=== PATIENT | female | born 1960 | race Caucasian/White ===

== ENCOUNTER → 2019-06-24 | Day surgery (SDC) | payer OTHER ==
--- NOTE | 2019-06-23 10:54 | Pre Op History & Physical ---
ANTICIPATED DATE OF SURGERY: June 24, 2019 CHIEF COMPLAINT: Chronic sinusitis, nasal obstruction. HISTORY OF PRESENT ILLNESS: This 59-year-old female has history of headaches with no nasal obstruction. The patient has normal sense of smell. The patient denies any epistaxis or fracture or injury to the nose. She does have postnasal drip. The patient was seen in the ER in [facility] for headaches. An MRI of the brain showed chronic sinusitis. The patient's condition has been treated by myself with multiple antibiotics including Augmentin and Medrol Dosepak with no improvement of the condition. A CT scan of paranasal sinuses done recently showed the patient has chronic sinusitis with ethmoid sinus involvement, maxillary sinus involvement, sphenoid sinus involvement, and deviated nasal septum to the right side. REVIEW OF SYSTEMS: System review showed no recent cardiovascular, respiratory, or GI problem. PAST MEDICAL HISTORY: The patient has history of mitral valve prolapse. PAST SURGICAL HISTORY: The patient has previous rotator cuff surgery on both sides and appendectomy. ALLERGIES: SHE IS ALLERGIC TO SULFA. MEDICATIONS: She is on Prempro. SOCIAL HISTORY: She is a nonsmoker and social drinker. FAMILY HISTORY: Noncontributory. PHYSICAL EXAMINATION: VITAL SIGNS: On examination, the patient's vital signs were within normal limits. HEENT: Ear exam show normal tympanic membrane bilaterally. Nasal exam show subluxation of the septum to the left side with the nasal septum on the right about 30%. Oropharynx and oral cavity show 1+ tonsils bilaterally with Mallampati level II. NECK: Showed no lymph node or thyroid palpable. CHEST: Showed good air entry bilaterally. CARDIOVASCULAR: Showed S1, S2. No murmur noted. ASSESSMENT AND PLAN: Ms. Candelario has chronic sinusitis and nasal obstruction, which has been resistant to conservative therapy. The suggested treatment is endoscopic sinus surgery, septoplasty, resection of inferior turbinate, and other necessary procedure. The complication of procedure includes, but not limited to bleeding, infection, CSF leak, blindness, double vision, dry eyes, septal perforation, septal hematoma, persistent nasal obstruction, persistent nasal crusting, nasal deformity, recurrence of sinus problem and persistence of headaches. Alternatives will be continued observation, continuing antibiotic therapy, topical nasal steroid therapy, systemic steroid therapy, and decongestant. The patient has elected to undergo surgical procedure. MD ALEXANDRA Medina/MAGGIE /[id number] cc: Abdelrahman Setward MD
[~2019-06-24] MED LIST: DEXAMETHASONE SOD PHOS 10 MG/1 ML VIAL ONE; DEXAMETHASONE SOD PHOS INJ 4 MG/ML VIAL ONE; EPINEPHRINE HCL 1:1000 1ML 1 MG/ML AMP ONE; FENTANYL CITRATE/PF 100MCG/2 ML INJ ONE; GLYCOPYRROLATE INJ 1MG/ 5 ML SYR ONE; KETOROLAC TROMETHAMINE 30 MG/ML VIAL ONE; LIDOCAINE 1% W/EPINEPHRINE 20 ML VIAL INJ ONE; LIDOCAINE 2%/ EPINEPHRINE 20ML MDV ONE; LIDOCAINE HCL 2% LOCAL INJ 5 ML SDV VIAL INJ ONE; MEPERIDINE HCL INJ 25 MG/ML VIAL ONE; MIDAZOLAM HCL 2 MG/2 ML VIAL ONE; NEOSTIGMINE 5 MG/5ML SYR ONE; ONDANSETRON HCL INJ 2MG/ML 2ML 2 MG/ML VIAL ONE; PREMPRO 0.3 MG1 EACH PO; PROMETHAZINE HCL (IM) 25 MG/ML VIAL ONE; PROPOFOL IV EMULSION 10 MG/ML 20 ML VIAL ONE; ROCURONIUM BROMIDE 10 MG/ML 5ML VIAL ONE; SCOPOLAMINE 1.5 MG PATCH ONE; SEVOFLURANE INHAL SOLN 250 ML PEN BTL ONE
--- OUTSIDE RECORDS SUMMARY | 2019-06-24 06:49 | XMS REPORT | Clinical Summary ---
Author Author [facility] Organization [facility] Address Unknown Phone Unavailable Care Team Providers Care Command And Control Specialist Name Role Phone Abdelrahman Steward MD PCP Allergies Comments Active Allergy Reactions Severity Noted Date Becomes very agitated Diphenhydramine Low 06/01/2019 Sulfa (Sulfonamide 11/08/2017 Antibiotics) Medications End Date Status Medication Sig Dispensed Refills Start Date Active PREMPRO 0.3-1.5 mg per 0 tablet 7 10/21/2018 Discontinued aspirin (ECOTRIN) 81 MG Take 81 mg by 0 enteric coated tablet mouth daily. 12/02/2018 Discontinued naproxen (NAPROSYN) 375 TAKE ONE 20 tablet 0 MG tablet TABLET BY 8 MOUTH TWO TIMES A DAY 12/02/2018 Discontinued gabapentin (NEURONTIN) TAKE ONE 30 capsule 0 300 mg capsule CAPSULE BY 8 MOUTH THREE TIMES A DAY Active Problems Problem Noted Date S/P right rotator cuff repair 11/05/2018 Follow-up examination after orthopedic surgery 11/05/2018 Chronic right shoulder pain 10/03/2018 Complete tear of right rotator cuff 11/08/2017 Encounters Care Team Description Date Type Specialty Saulo Tiwari MD Other migraine with status migrainosus, not intractable (Primary Dx) 06/01/2019 Emergency Emergency Medicine Endy Smith MD Complete tear of right rotator cuff (Primary Dx); S/P right rotator cuff repair 01/02/2019 Office Visit Orthopedic Surgery Endy Smith MD S/P right rotator cuff repair (Primary Dx) 12/02/2018 Office Visit Orthopedic Surgery Endy Smith MD Complete tear of right rotator cuff (Primary Dx); S/P right rotator cuff repair; Follow-up examination after orthopedic surgery 11/05/2018 Office Visit Orthopedic Surgery Endy Smith MD 11/04/2018 Refill Orthopedic Surgery Juanis Olivas MD 10/23/2018 Anesthesia General Surgery Event Endy Smith MD REPAIR, ROTATOR CUFF, ARTHROSCOPIC, BICEPS TENOTOMY AND TENODESIS, UPPER SUBSCAPULAR REPAIR, ACROMIOPLASTY AND BONE MARROW ASPIRATION AND INFUSION-RIGHT 10/23/2018 Surgery General Surgery Endy Smith MD 10/23/2018 Hospital General Surgery Encounter Endy Smith MD Preop testing 10/21/2018 Hospital Radiology Encounter Endy Smith MD Preop testing (Primary Dx) 10/21/2018 Pre-Admit Pre-Admission Testing Testing Appointment Endy Smith MD Complete tear of right rotator cuff (Primary Dx) 10/14/2018 Prep for Orthopedic Surgery Surgery Abdelrahman Steward MD Abnormal mammogram 10/09/2018 Hospital Radiology Encounter Abdelrahman Steward MD Abnormal mammogram 10/09/2018 Hospital Radiology Encounter Abdelrahman Steward MD Abnormal mammogram (Primary Dx) 10/08/2018 Transcribe Access Orders Abdelrahman Steward MD Screening breast examination 10/04/2018 Hospital Radiology Encounter Endy Smith MD Chronic right shoulder pain (Primary Dx); Complete tear of right rotator cuff 10/03/2018 Office Visit Orthopedic Surgery Abdelrahman Steward MD Screening breast examination (Primary Dx) 10/03/2018 Transcribe Access Orders after 06/23/2018 Family History Medical History Relation Name Comments Diabetes Maternal Grandmother Heart attack Maternal Grandmother COPD Mother Heart disease Mother Hyperlipidemia Mother Relation Name Status Comments Maternal Grandmother Mother Social History Date Tobacco Use Types Packs/Day Years Used Never Smoker Smokeless Tobacco: Never Used Alcohol Use Drinks/Week oz/Week Comments Yes 2-6 Glasses 1.2 - 3.6 of wine Sex Assigned at Date Recorded Not on file Industry Job Start Date Occupation Not on file Not on file Not on file Travel End Travel History Travel Start No recent travel history available. Last Filed Vital Signs Time Taken Vital Sign Reading 06/01/2019 1:07 AM CDT Blood Pressure 138/72 06/01/2019 1:07 AM CDT Pulse 87 05/31/2019 10:54 PM CDT Temperature 36.9 C (98.4 F) 06/01/2019 1:07 AM CDT Respiratory Rate 15 06/01/2019 1:07 AM CDT Oxygen Saturation 96% - Inhaled Oxygen - Concentration 05/31/2019 10:53 PM CDT Weight 61.2 kg (135 lb) 05/31/2019 10:53 PM CDT Height 160 cm (5' 3") 05/31/2019 10:53 PM CDT Body Mass Index 23.91 Plan of Treatment Health Maintenance Due Date Last Done Comments COLONOSCOPY SCREENING 2011 SHINGLES VACCINES (#1) 2011 INFLUENZA VACCINE 06/26/2019 BREAST CANCER SCREENING 10/09/2020 10/09/2018, 10/09/2018, 10/09/2018, Additional history exists Implants Device Identifier Shelf Expiration Date Model / Serial / Lot Implanted Type Area Manufactur er 04/25/2020 [place] [id number] / / [id number] [place] S[place] W/ Two Sz 2 Fibrwr Orthopedic Right: Shoulder ARTHREX 5.5x15mm Biocomposite - [id number] [employer] Implanted: Qty: 2 on 10/23/2018 by Implants Endy Smith MD 10/25/2019 [place] [id number] / / [id number] [place] S[place] Swivelock Biocmpst Tndes Surgical Right: Shoulder ARTHREX 8x19.5mm - [id number] Implants; INC Implanted: Qty: 1 on 10/23/2018 by Expanders; Endy Smith MD Extenders; Surgical Wires Procedures Comments Procedure Name Priority Date/Time Associated Diagnosis CT HEAD WO CONTRAST STAT 06/01/2019 12:24 AM CDT DE AN PERIPHERAL BLOCK Routine 10/23/2018 PROCEDURE FOR PAIN 12:33 PM PILE DRIVER OPERATOR Procedure Note - Juanis Olivas MD - 10/23/2018 12:33 PM PILE DRIVER OPERATOR Peripheral Block Date/Time: 10/23/2018 10:38 AM Performed by: Juanis Olivas MD Authorized by: Juanis Olivas MD Patient Location: OR Start Time: 10/23/2018 10:32 AM End Time: 10/23/2018 10:43 AM Reason for Block: at surgeon's request, post-op pain management , procedure for pain Staff: Anesthesio logist: Juanis Olivas MD Performed by: Josemanuel marrero Preprocedu re: patient identified , IV checked, site and side verified, risks and benefits discussed, procedure verified, surgical consent complete, patient position confirmed, monitors and equipment checked, pre-op evaluation complete and site marked Time Out Performed: 8 10:32 AM Peripheral Nerve Block: Patient Position: Sitting Prep: ChloraPrep and patient draped Monitoring : Blood pressure monitoring , continuous pulse oximetry, CO2 and heart rate Block Type: Interscale ne Laterality : Right Injection Technique: Catheter insertion Procedures : ultrasound guided Ultrasound documentat ion: Images saved on portable media Local Infiltrati on (See MAR for details): Ropivacain e Needle: Needle Type: Tuohy Needle Gauge: 21 G Needle Length: 2 in Catheter Size: 18 G Catheter at Skin Depth: 9 cm Assessment : Injection Assessment : Visualized needle/loc al anesthetic surroundin g nerve, visualized pertinent vascular structures and nerves, needle tip visualized at all times during injection of medication , intermitte nt aspiration during local anesthetic administra tion and no symptoms of intraneura l/intraven ous injection Paresthesi a Pain: None Heart Rate Change: No Slow Fractionat ed Injection: Yes Block outcome: No apparent complicati ons, patient comfortabl e and patient tolerated procedure well Medication s Administer ed Ropivacain e 0.5 % PF (mL), 25 mL DE AN PERIPHERAL BLOCK Routine 10/23/2018 POST-OP PAIN 12:33 PM PILE DRIVER OPERATOR Procedure Note - Juanis Olivas MD - 10/23/2018 12:33 PM PILE DRIVER OPERATOR Peripheral Block Date/Time: 10/23/2018 10:38 AM Performed by: Juanis Olivas MD Authorized by: Juanis Olivas MD Patient Location: OR Start Time: 10/23/2018 10:32 AM End Time: 10/23/2018 10:43 AM Reason for Block: at surgeon's request, post-op pain management , procedure for pain Staff: Josemanuel padront: Juanis Olivas MD Performed by: Josemanuel marrero Preprocedu re: patient identified , IV checked, site and side verified, risks and benefits discussed, procedure verified, surgical consent complete, patient position confirmed, monitors and equipment checked, pre-op evaluation complete and site marked Time Out Performed: 10:32 AM Peripheral Nerve Block: Patient Position: Sitting Prep: ChloraPrep and patient draped Monitoring : Blood pressure monitoring , continuous pulse oximetry, CO2 and heart rate Block Type: Interscale ne Laterality : Right Injection Technique: Catheter insertion Procedures : ultrasound guided Ultrasound documentat ion: Images saved on portable media Local Infiltrati on (See MAR for details): Ropivacain e Needle: Needle Type: Tuohy Needle Gauge: 21 G Needle Length: 2 in Catheter Size: 18 G Catheter at Skin Depth: 9 cm Assessment : Injection Assessment : Visualized needle/loc al anesthetic surroundin g nerve, visualized pertinent vascular structures and nerves, needle tip visualized at all times during injection of medication , intermitte nt aspiration during local anesthetic administra tion and no symptoms of intraneura l/intraven ous injection Paresthesi a Pain: None Heart Rate Change: No Slow Fractionat ed Injection: Yes Block outcome: No apparent complicati ons, patient comfortabl e and patient tolerated procedure well Medication s Administer ed Ropivacain e 0.5 % PF (mL), 25 mL DE AN ELECTIVE Routine 10/23/2018 ENDOTRACHEAL AIRWAY 8:35 AM PILE DRIVER OPERATOR Procedure Note - Juanis Olivas MD - 10/23/2018 8:35 AM PILE DRIVER OPERATOR Airway Date/Time: 10/23/2018 8:19 AM Performed by: Juanis Olivas MD Authorized by: Juanis Olivas MD Location: OR Urgency: Elective Difficult Airway: No Anesthesio logist: Juanis Olivas MD Performed by: anesthesio logist Preoxygena violeta with 100% O2: Yes C-spine Precaution s Maintained Throughout : Yes Mask Ventilatio n: Easy mask Final Airway Type: Endotrache al airway Final Endotrache al Airway: ETT Cuffed: Yes Technique Used: Direct laryngosco py Insertion Site: Oral Blade Type: Pavan Laryngosco pe Blade/Vide olaryngosc ope Blade Size: 3 ETT Size (mm): 7.0 Cuff at minimum occlusion pressure: Yes Measured from: Lips ETT to Lips (cm): 23 Placement Verified by: CO2 detection, direct visualizat ion and equal breath sounds Laryngosco pic view: Grade I - full view of glottis Rapid Sequence Induction (RSI): No Modified RSI: No Number of Attempts at Approach: 1 REPAIR, ROTATOR CUFF, 10/23/2018 Sprain of right rotator ARTHROSCOPIC 8:00 AM PILE DRIVER OPERATOR cuff capsule, initial encounter Biceps tendinopathy of right upper extremity Special Needs INTER SCALENE BLOCKARTHR EX B MAC ECG PRE/POST OP Routine 10/21/2018 Preop testing 6:04 PM PILE DRIVER OPERATOR XR CHEST 2 VW Routine 10/21/2018 Preop testing 5:49 PM PILE DRIVER OPERATOR ESTIMATED GFR Routine 10/21/2018 4:54 PM PILE DRIVER OPERATOR URINALYSIS, AUTOMATED Routine 10/21/2018 Preop testing WITH MICROSCOPY 4:54 PM PILE DRIVER OPERATOR PROTHROMBIN TIME WITH INR Routine 10/21/2018 Preop testing 4:54 PM PILE DRIVER OPERATOR PARTIAL THROMBOPLASTIN Routine 10/21/2018 Preop testing TIME (PTT) 4:54 PM PILE DRIVER OPERATOR COMPREHENSIVE METABOLIC Routine 10/21/2018 Preop testing PANEL 4:54 PM PILE DRIVER OPERATOR HC COMPLETE BLD COUNT Routine 10/21/2018 Preop testing W/AUTO DIFF 4:54 PM PILE DRIVER OPERATOR MAMMO DIAGNOSTIC W CAD Routine 10/09/2018 Abnormal mammogram RIGHT 1:23 PM PILE DRIVER OPERATOR MAMMO SCREENING W CAD Routine 10/04/2018 Screening breast BILATERAL 12:50 PM PILE DRIVER OPERATOR examination XR SHOULDER 2+ VW RIGHT Routine 10/03/2018 Chronic right shoulder 10:17 AM PILE DRIVER OPERATOR pain after 06/23/2018 Results * CT Head Wo Contrast (06/01/2019 12:24 AM CDT) Specimen Narrative Performed At EXAMINATION: CT HEAD WO CONTRAST HM [facility] CLINICAL HISTORY: headache COMPARISON:CT 05/16/2014. TECHNIQUE: Noncontrast images of the brain were obtained from the skull base to the vertex. Both soft tissue and bone reconstruction algorithms were performed. CT scans are performed using radiation dose reduction techniques (iterative reconstruction and/or automated exposure control). Technical factors are evaluated and adjusted to ensure appropriate moderation of exposure. Automated dose management technology is applied to adjust radiation exposure while achieving a diagnostic quality image. FINDINGS: The brain parenchyma is unremarkable. The knowles-white matter differentiation is preserved. No evidence of acute intra or extra-axial hemorrhage, mass, mass effect or acute territorial infarction. There is no acute hydrocephalus. Basal cisterns are patent. No acute soft tissue hematoma or laceration. No skull fractures or aggressive bony lesions. Scattered mucosal thickening of the paranasal sinuses greatest of right sphenoid sinus. Mastoid air cells are clear. Orbits are normal. IMPRESSION: No acute intracranial abnormality identified. [facility]-[id number] Procedure Note Hm Interface, Radiology Results Incoming - 06/01/2019 12:30 AM CDT EXAMINATION: CT HEAD WO CONTRAST CLINICAL HISTORY: headache COMPARISON: CT 05/16/2014. TECHNIQUE: Noncontrast images of the brain were obtained from the skull base to the vertex. Both soft tissue and bone reconstruction algorithms were performed. CT scans are performed using radiation dose reduction techniques (iterative reconstruction and/or automated exposure control). Technical factors are evaluated and adjusted to ensure appropriate moderation of exposure. Automated dose management technology is applied to adjust radiation exposure while achieving a diagnostic quality image. FINDINGS: The brain parenchyma is unremarkable. The knowles-white matter differentiation is preserved. No evidence of acute intra or extra-axial hemorrhage, mass, mass effect or acute territorial infarction. There is no acute hydrocephalus. Basal cisterns are patent. No acute soft tissue hematoma or laceration. No skull fractures or aggressive bony lesions. Scattered mucosal thickening of the paranasal sinuses greatest of right sphenoid sinus. Mastoid air cells are clear. Orbits are normal. IMPRESSION: No acute intracranial abnormality identified. [facility]-[id number] Performing Organization Address City/State/Zipcode Phone Number [facility] [address] [place] [address] * ECG Pre/Post Op (10/21/2018 6:04 PM PILE DRIVER OPERATOR) Ventricular 66 [facility] rate Atrial rate 66 [facility] DE interval 172 [facility] QRSD interval 90 [facility] QT interval 416 [facility] QTC interval 436 [facility] P axis 1 55 [facility] QRS axis 1 68 [facility] T wave axis 70 [facility] EKG impression Normal sinus rhythm with sinus [facility] MUSE arrhythmia-Normal ECG-In automated comparison with ECG of 04-FEB-2015 16:09,-No significant change was found- Specimen Narrative Performed At Performing Organization Address City/[facility] Phone Number [facility] MUSE [address] [place] [address] * XR Chest 2 Vw (10/21/2018 5:49 PM PILE DRIVER OPERATOR) Specimen Narrative Performed At EXAMINATION:XR CHEST 2 VW [facility] CLINICAL HISTORY:Z01.818 Encounter for other preprocedural examination, Preop COMPARISON:06/08/2008 FINDINGS: Two views of the chest demonstrate normal cardiomediastinal silhouette. Pulmonary vasculature is within normal limits. Both lungs are clear. No pleural disease is identified. Regional osseous structures is unremarkable. IMPRESSION: No radiographic evidence of acute cardiopulmonary process or active disease of the chest. [id number] Procedure Note Interface, Radiology Results Incoming - 10/21/2018 6:00 PM PILE DRIVER OPERATOR EXAMINATION: XR CHEST 2 VW CLINICAL HISTORY: Z01.818 Encounter for other preprocedural examination, Preop COMPARISON: 06/08/2008 FINDINGS: Two views of the chest demonstrate normal cardiomediastinal silhouette. Pulmonary vasculature is within normal limits. Both lungs are clear. No pleural disease is identified. Regional osseous structures is unremarkable. IMPRESSION: No radiographic evidence of acute cardiopulmonary process or active disease of the chest. [id number] Performing Organization Address [facility] Cent[facility]ode Phone Number [facility] [address] [place] [address] * Estimated GFR (10/21/2018 4:54 PM PILE DRIVER OPERATOR) Estimated GFR >=90 mL/min/1.73 m2 [place] Comment: [facility]ESTANT FABI[employer] [facility] G1 >=90 Normal or high G2 60-89Mildly decreased [id number] Mildly to moderately decreased [id number] Moderately to severely decreased G4 15-29Severely decreased G5 <15Kidney failure The eGFR was calculated using the Chronic Kidney Disease Epidemiology Collaboration (CKD-EPI) equation. Interpretation is based on recommendations of the National Kidney Foundation-Kidney Disease Outcomes Quality Initiative (NKF-KDOQI) published in 2014. Specimen Plasma specimen Performing Organization Address City/[facility]/Zipcode Phone Number [facility] DEPARTMENT OF [address] [place] [phone] PATHOLOGY AND GENOMIC MEDICINE [place] DEEP BEAL1 [address] * Urinalysis, automated with microscopy (10/21/2018 4:54 PM PILE DRIVER OPERATOR) Color, UA Colorless [facility] Appearance, UA Clear [facility] Specific 1.002 1.001 - 1.035 [place] gravity, [facility] pH, UA 6.0 5.0 - 8.5 [facility] Protein, UA Negative Negative [facility] Glucose, UA Negative Negative [facility] Ketones, UA Negative Negative [facility] Bilirubin, UA Negative Negative [facility] Blood, UA Negative Negative [facility] Nitrite, UA Negative Negative [facility] Urobilinogen, Negative <2.0 [facility] Leukocyte Negative Negative [place] esterase, [facility] Epithelial Few /HPF [place] cells, [facility] WBC, UA <1 0 - 5 /HPF [facility] RBC, UA <1 0 - 5 /HPF [facility] Bacteria, UA Trace None seen [facility] Yeast, UA None seen [facility] Yeast with None seen [place] pseudohyphae, [facility] Specimen Urine Performing Organization Address City/State/Zipcode Phone Number [facility] DEPARTMENT OF [address] [place] [phone] PATHOLOGY AND GENOMIC MEDICINE [place] DEEP BEAL1 [address] * Partial thromboplastin time, activated (10/21/2018 4:54 PM PILE DRIVER OPERATOR) PTT 30.8 23.0 - 36.0 sec [place] Comment: [facility] PTT therapeutic range for [facility] unfractionated heparin is HOSPITAL 61.0-112.0 seconds which corresponds to Anti-Xa 0.3-0.7 U/ml. Note:Change in Panic Value The PTT Panic Value is changing from 110 sec. to 100 sec. due to new instrumentation and reagents. Correlation studies have been performed to validate this result. Specimen Blood Performing Organization Address City/State/Zipcode Phone Number [facility] DEPARTMENT OF [address] [place] [phone] PATHOLOGY AND GENOMIC MEDICINE [place] [id number] [address] * Prothrombin time with INR (10/21/2018 4:54 PM PILE DRIVER OPERATOR) Prothrombin 12.6 11.5 - 14.5 sec [facility] INR 0.97 [place] Comment: [place]EEP [place] For patients on anticoagulant COLIN therapy, reference ranges HOSPITAL below: Indication: INR Value Treatment of Venous Thrombosis, 2.0-3.0 pulmonary emboli, or prophylaxis of a venous thrombosis, or systemic emboli. High dose, high risk patients 3.0-4.5 with mechanical valves. NOTE:INR values over 3.0 are sometimes associated with gastrointestinal hemorrhage, especially values over 4.0. Specimen Blood Performing Organization Address City/[facility]/Zipcode Phone Number [facility] OF [address] [place] [address] PATHOLOGY AND [facility] MEDICINE [address] * CBC with platelet and differential (10/21/2018 4:54 PM PILE DRIVER OPERATOR) WBC 6.7 4.2 - 11.0 k/uL [facility] RBC 4.16 4.04 - 5.86 m/uL [facility] HGB 12.8 11.5 - 15.3 g/dL [facility] HCT 38.5 34.0 - 45.0 % [facility] MCV 92.5 80.0 - 98.[address] [facility] MCH 30.8 27.0 - 34.[address] [facility] MCHC 33.2 31.5 - 36.5 g/dL [facility] RDW - SD 39.9 37.0 - 51.[address] [facility] MPV 9.8 7.4 - 10.[address] [facility] Platelet count 216 150 - 400 k/uL [facility] Nucleated RBC 0.00 /[address] [facility] Neutrophils 68.3 (H) 36.0 - 66.0 % [facility] Lymphocytes 22.7 (L) 24.0 - 44.0 % [facility] Monocytes 5.8 0.0 - 6.0 % [facility] Eosinophils 2.5 0.0 - 6.0 % [facility] Basophils 0.4 0.0 - 1.2 % [facility] Immature 0.3 0.0 - 1.0 % [place] granulocytes [facility] Specimen Blood Performing Organization Address City/State/Zipcode Phone Number [facility] DEPARTMENT OF [address] [place] [address] [place] [address] PATHOLOGY AND GENOMIC MEDICINE [address] * Comprehensive metabolic panel (10/21/2018 4:54 PM PILE DRIVER OPERATOR) Sodium 138 135 - 150 mEq/L [facility] Potassium 3.5 3.5 - 5.0 mEq/L [facility] Chloride 97 (L) 98 - 112 mEq/L [facility] CO2 28 24 - 31 mmol/L [facility] Anion gap 13@ANIO 7 - 15 mEq/L [facility] BUN 13 7 - 18 mg/dL [facility] Creatinine 0.70 0.50 - 0.90 mg/dL [facility] Glucose 85 65 - 100 mg/dL [facility] Calcium 9.4 8.3 - 10.2 mg/dL [facility] Protein 7.0 6.3 - 8.3 g/dL [facility] Albumin 3.4 (L) 3.5 - 5.0 g/dL [facility] A/G ratio 0.9 0.7 - 3.8 [facility] Alkaline 80 0 - 104 U/L [place] phosphatase [facility] AST 25 10 - 35 U/L [facility] ALT 21 5 - 50 U/L [facility] Total bilirubin 0.3 0.2 - 1.2 mg/dL [facility] Specimen Plasma specimen Performing Organization Address City/[facility] Centercode Phone Number [facility] OF [address] [place] [phone] PATHOLOGY AND GENOMIC MEDICINE [facility] [address] * Mammo Diagnostic w Cad Right (10/09/2018 1:23 PM PILE DRIVER OPERATOR) Specimen Narrative Performed At PROCEDURE: MAMMO DIAGNOSTIC W CAD RIGHT [facility] Computer aided detection was utilized for the interpretation. HISTORY: Patient is a 58-year-old female called back from screening mammogram for an asymmetry visualized only in the right MLO view posterior depth. COMPARISON: Prior studies dating 10/04/2018, 03/08/2017, 01/31/2016, 12/24/2014 and 12/16/2013. DENSITY: The breast parenchyma is heterogeneously dense decreasing the sensitivity of the study.. FINDINGS Mammogram: Asymmetry projected in the superior aspect of the posterior right breast in the MLO view only corresponds to overlapping of glandular tissue on the spot compressions. There is no suspicious masses or architectural distortions. IMPRESSION:There is no evidence of malignancy RECOMMENDATION: Annual mammography and correlation with physical examination BI-RADS 1: NEGATIVE [id number] Performing Organization Address City/[facility] Centercode Phone Number [facility] [address] [place] [address] * Mammo Screening w Cad Bilateral (10/04/2018 12:50 PM PILE DRIVER OPERATOR) Specimen Addenda Addendum by Obdulia Pinto MD on 12/02/2018 2:05 PM ADDENDUM #1 BI-RADS 0: Incomplete: Needs additional imaging evaluation. Narrative Performed At EXAMINATION:MAMMO SCREENING W CAD BILATERAL [facility] CLINICAL HISTORY:Z12.31 Encounter for screening mammogram for malignant neoplasm of breast, z12.31 COMPARISON:Prior studies dating 12/16/2013, 12/24/2014, 01/31/2016 and 03/08/2017. FINDINGS: The breast parenchyma is heterogeneously dense decreasing the sensitivity of the study. There are benign calcifications in intramammary nodes in both breasts. There is postsurgical changes in the left breast. There is a more prominent asymmetry projected in the posterior aspect of the right superior breast, only visualized in the right MLO view. IMPRESSION: Asymmetry in the right posterior breast better visualized in the right MLO view. Recommendation: Spot compression views of the asymmetry in the right breast or discrete the imagings are recommended. Possible target ultrasound is also recommended. BI-RADS 0: Additional mammographic views are recommended. [email or web address] Procedure Note Interface, Radiology Results Incoming - 10/07/2018 10:50 AM PILE DRIVER OPERATOR EXAMINATION: MAMMO SCREENING W CAD BILATERAL CLINICAL HISTORY: Z12.31 Encounter for screening mammogram for malignant neoplasm of breast, z12.31 COMPARISON: Prior studies dating 12/16/2013, 12/24/2014, 01/31/2016 and 03/08/2017. FINDINGS: The breast parenchyma is heterogeneously dense decreasing the sensitivity of the study. There are benign calcifications in intramammary nodes in both breasts. There is postsurgical changes in the left breast. There is a more prominent asymmetry projected in the posterior aspect of the right superior breast, only visualized in the right MLO view. IMPRESSION: Asymmetry in the right posterior breast better visualized in the right MLO view. Recommendation: Spot compression views of the asymmetry in the right breast or discrete the imagings are recommended. Possible target ultrasound is also recommended. BI-RADS 0: Additional mammographic views are recommended. [email or web address] Performing Organization Address City/[facility]/[employer] Phone Number [facility] [address] [place] [address] * XR Shoulder 2+ Vw Right (10/03/2018 10:17 AM PILE DRIVER OPERATOR) Specimen Narrative Performed At [facility] 3 view x-ray of the right shoulder: Normal study no interval change from a year ago Performing Organization Address [place]/[facility] Phone Number [facility] [address] [place] [address] after 06/23/2018 Insurance Type Payer Benefit Subscriber ID Effective Phone Address Plan / Dates Group O AETNA AETNA xxxxxxxxxx [id number] HMO,POS,EP resent O, MC/EC Advance Directives Patient has advance care planning documents on file. For more information, mo e contact: Dean Coyne [address] [place] [address]
[2019-06-24 12:15] VITALS: BP 116/71
--- NOTE | 2019-06-24 15:16 | Operative Report ---
DATE OF PROCEDURE: 06/24/2019 SURGEON: Maximino Longoria MD PREOPERATIVE DIAGNOSES: Chronic sinusitis and nasal obstruction. POSTOPERATIVE DIAGNOSES: Chronic sinusitis and nasal obstruction. OPERATIVE PROCEDURES: 1. Bilateral anterior and posterior appendectomy. 2. Bilateral maxillary sinus antrostomy. 3. Bilateral resection of polyps. 4. Bilateral resection of inflamed tissue and maxillary antrum. 5. Bilateral sphenoidectomy. 6. Septoplasty. ANESTHESIA: Anesthesiology Group. INDICATIONS: This 59-year-old female has history of nasal obstruction, postnasal drip discharge from her nose. Her condition has been treated with antibiotics over 6-8 weeks with systemic steroid, topical nasal steroid with no improvement. On examination, she was noted to have a deviated nasal septum that are right side anteriorly and midportion about 40% with a subluxation of the septum to the left. CT scan of paranasal sinuses showed the patient has ethmoid sinusitis on both sides, maxillary sinus involvement on both sides, sphenoid sinus involvement, worse on the right. Also confirmed the nasal septum. It was decided that endoscopic sinus surgery, septoplasty, and other necessary procedures will be beneficial for her. DESCRIPTION OF PROCEDURE: The patient was taken to the operating room, put under general anesthesia, endotracheally intubated. The nose was injected with 1% Xylocaine with 1:100,000 epinephrine for hemostasis. Epinephrine-soaked pledget was inserted into the nose. These were subsequently removed. The left paranasal sinuses were approached first. The middle turbinate was medialized. The bulla ethmoidalis was entered, anterior and posterior ethmoid sinuses were dissected in systematic fashion. Inflamed tissue was noted at both anterior and posterior ethmoid sinus area. Care was taken during dissection to ascertain that the orbit was not entered. The sphenoid sinus was entered through the natural ostium. This was enlarged using a microshaver. Inflamed tissue of sphenoid sinus was dissected using a microshaver. Using a curved probe, the natural ostium of the maxillary sinus was entered. This was enlarged anteriorly and posteriorly using a backbiter and Thru-Cut forceps respectively. Inflamed tissue in the maxillary antrum was dissected using the upbiting Thru-Cut forceps. The right paranasal sinuses were approached. The middle turbinate was medialized. The bulla ethmoidalis was entered. Anterior and posterior ethmoid sinuses were dissected in a systematic fashion. Inflamed tissue was noted above the anterior and posterior ethmoid sinus area. Care was taken during dissection to ascertain that the orbit was not entered. The sphenoid sinus was entered through the natural ostium. This was enlarged using a microshaver. Inflamed tissue of the sphenoid sinus was dissected using the microshaver. Using a curved probe, the maxillary sinus was entered. The natural ostia of the maxillary sinus was enlarged using the microshaver. Inflamed tissues of the maxillary sinus were dissected using microshaver. Some bleeding area was noted in the anterior portion of the natural ostia of the maxillary sinus on both sides, worse on the left. These were cauterized using the suction cautery. The septoplasty was performed. A hemitransfixion incision was done on the left side. Mucoperichondrial flap was elevated in left. The bony cartilaginous junction was encountered and this was . A perpendicular plate of the ethmoid was transected. This was removed along with the vomer. Septal spur in cartilaginous portion was removed using a [place] elevator. The quadrangular cartilage after being freed from posterior and inferior constraint was able to swing back into the midline. The hemitransfixion incision was closed using 4-0 chromic suture in interrupted fashion. Septal whipstitch was tied using 4-0 plain gut sutures to reapproximate the mucoperichondrial flap and prevent septal hematoma formation. NasoPore was inserted in sinus cavities on either side. This was done to prevent synechiae formation and for hemostasis. To reapproximate the mucoperichondrial flap against the septum, NasoPore was inserted against the inferior mid portion of the septum on both sides. The patient tolerated the above procedure well. Estimated blood loss about 60 mL. She was given 20 mg of Decadron intraoperatively. The patient was able to be transferred to recovery room in stable condition. MD ALEXANDRA Medina/MAGGIE /[id number]
== END | disposition home or self-care (01) ==
LOC: OR 06:46
PROVIDERS: ATTEND Otolaryngology Otolaryngology/Facial Plastic Surgery
DX: J32.0 Chronic maxillary sinusitis (principal); J32.2 Chronic ethmoidal sinusitis; J32.3 Chronic sphenoidal sinusitis; J34.2 Deviated nasal septum; J33.8 Other polyp of sinus; J34.89 Other specified disorders of nose and nasal sinuses; I34.1 Nonrheumatic mitral (valve) prolapse; R00.1 Bradycardia, unspecified; Z88.2 Allergy status to sulfonamides
CPT/HCPCS: 30520; 31259; 31267; 88300; 88305; 93005; J0171; J1100 ×2; J1885; J2001 ×2; J2175; J2250; J2405; J2550; J2704; J3010; J3490; 88304

== ENCOUNTER → 2019-10-28 | Day surgery (SDC) | payer OTHER ==
--- NOTE | 2019-10-27 13:28 | Pre Op History & Physical ---
DATE OF SURGERY: 10/28/2019 CHIEF COMPLAINT: Nasal obstruction, worse on the left side. HISTORY OF PRESENT ILLNESS: This 59-year-old female has noticed persistent whistling in her ear with nasal obstruction, worse on the left side. The patient had endoscopic sinus surgery, septoplasty in May 2019, was doing well and then the whistling sound came about a month later. The patient has been treated with antibiotics and Atrovent spray with no improvement of the condition. On examination, the patient was noted to have a prominent lower lateral cartilage on the left side with the medial emiliano more prominent sticking into the airway in the columella area. The patient was also noted to have nasal valve. The patient noticed that using Breathe Right strip has improved the condition. Also pushing the medial emiliano of the left ala medially improved her airway. A repeat CT scan of paranasal sinuses done in August 2019 showed the patient has right sphenoid sinus opacification. She also has been treated with Ceftin, multiple courses with no improvement of the condition. She has been treated for more than 12 weeks. REVIEW OF SYSTEMS: System review showed no recent cardiovascular, respiratory, or GI problem. PAST MEDICAL HISTORY: The patient has a history of mitral valve prolapse. No other medical problem. PAST SURGICAL HISTORY: The patient has previous endoscopic sinus surgery, septoplasty, right and left rotator cuff surgery, and appendectomy. ALLERGIES: SHE IS ALLERGIC TO SULFA. MEDICATIONS: She is on Prempro. SOCIAL HISTORY: She is a nonsmoker and a social drinker. She drinks about two glasses per day. FAMILY HISTORY: Noncontributory. PHYSICAL EXAMINATION: VITAL SIGNS: The patient's vital signs were within normal limits. HEENT: Ear exam showed normal tympanic membranes bilaterally. Nasal exam showed a prominent lower lateral cartilage with a medial emiliano, more prominent with nasal valve collapse on both sides with opacification of her sphenoid sinus on the right. This has been resistant to conservative therapy. The suggested treatment is resection of the medial emiliano of the lower lateral cartilage on the left with bilateral nasal valve repair with flap reconstruction and resection of right sphenoid sinus opacification and other necessary procedure. The complication of procedure includes, but not limited to bleeding, infection, CSF leak, blindness, double vision, meningitis, septal perforation, septal hematoma, persistent nasal obstruction, persistent nasal crusting, nasal deformity, recurrence of the sinus problem along with persistence of the nasal obstruction and poor cosmetic result, and decreased support of the nasal cavities. The alternatives will be continued observation, topical nasal steroid therapy, systemic steroid therapy, antibiotics, and decongestant. The patient has elected to undergo the surgical procedure. MD ALEXANDRA Medina/MAGGIE /[id number]
[~2019-10-28] MED LIST changes: -DEXAMETHASONE SOD PHOS 10 MG/1 ML VIAL ONE; -LIDOCAINE 1% W/EPINEPHRINE 20 ML VIAL INJ ONE; +LIDOCAINE 1% W/EPINEPHRINE 20 ML VIAL ONE; -LIDOCAINE 2%/ EPINEPHRINE 20ML MDV ONE; -LIDOCAINE HCL 2% LOCAL INJ 5 ML SDV VIAL INJ ONE; -MEPERIDINE HCL INJ 25 MG/ML VIAL ONE; +METOCLOPRAMIDE HCL 10 MG/2ML VIAL ONE; -PROMETHAZINE HCL (IM) 25 MG/ML VIAL ONE; -SCOPOLAMINE 1.5 MG PATCH ONE; +TRIAMCINOLONE ACET 40 MG/ML VIAL ONE
[2019-10-28 12:40] VITALS: BP 100/57
--- NOTE | 2019-10-28 18:58 | Operative Report ---
DATE OF PROCEDURE: 10/28/2019 SURGEON: Maximino Longoria MD PREOPERATIVE DIAGNOSES: Chronic sinusitis, nasal obstruction and bilateral nasal valve collapse. POSTOPERATIVE DIAGNOSES: Chronic sinusitis, nasal obstruction and bilateral nasal valve collapse. OPERATIVE PROCEDURE: Right sphenoidectomy, bilateral nasal valve reconstruction with flaps and resection of cicatrix in the left columella. ANESTHESIA: Anesthesiology group. INDICATIONS: This 59 years old female has history of nasal obstruction worse on the left side. The patient also has bilateral nasal valve collapse, which improved with Fillmore maneuver. On examination of the patient's nose, she was noted to have a band of tissue in the anterior septum and posterior to the columella, which is blocking her airway. Pushing this area medially improved the patient's airway. CT scan of the paranasal sinuses showed the patient has a right sphenoid opacification. The patient had an endoscopic sinus surgery and septoplasty in May 2019. Seems like the sinus condition has been doing well except a scar band in the left columella area. It was decided that limited sphenoidectomy on the right side, resection of scar band on the left with bilateral nasal valve reconstruction and other necessary procedure will be beneficial for her. DESCRIPTION OF PROCEDURE: The patient was taken to the operating room, put under general anesthesia, endotracheally intubated. The nose was injected with 1% Xylocaine with 1:100,000 epinephrine for hemostasis. An epinephrine-soaked pledget was inserted in the nose and subsequently removed. The right paranasal sinuses were approached. The sphenoid sinus natural ostium was examined. It was noted to be scarred down. The scar tissue was removed using a microshaver. After entering the sphenoid sinus, the sphenoid sinus was entered and the inflamed tissue was dissected using the microshaver. The nasal cavities and also the anterior and posterior ethmoid sinuses were examined on both sides. No other abnormality was noted. The nasal valve reconstruction was undertaken. The left side was addressed first. An incision was made in the intercartilaginous area. Lower lateral cartilage flap was elevated. The lower lateral cartilage was rotated superiorly and laterally. The flap was sutured in place using mattress suture of 4-0 Prolene suture. Two of these were applied. The intercartilaginous incision was closed using 4-0 chromic suture in interrupted fashion. The right nasal valve was dressed. An intercartilaginous incision was made. The composite flap of lower lateral collagen and endonasal mucosa was rotated again superiorly and laterally. The flap was sutured in place using two mattress suture of 4-0 Prolene suture. The intercartilaginous incision was closed using 4-0 chromic suture in interrupted fashion. The excess tissue in the left hemitransfixion incisional area was addressed. The hemitransfixion incision on the left side was made. The mucoperichondrial flap with limited extent was elevated. This was done with some difficulty because of large scarring in this area. By dissecting the mucoperichondrial flap to the midportion of the septum, the area that was encroaching on the airway from this region has improved. This dissection was carried out inferiorly to release the scar tissue that was holding the quadrangular cartilage laterally to the left side. The hemitransfixion incision of the scar tissue was released, was sutured in place using a 4-0 chromic suture in interrupted fashion. Mattress suture using Monocryl was done in this region in the anterior portion of the septum from right to left to hold the scar tissue medial. Two of the sutures were used. At the end of the procedure, Kenalog 40 about 0.25 mL was injected into the columellar region to prevent scar tissue from reforming. The patient tolerated the above procedure well with estimated blood lossof about 20 mL. She was given 20 mg of Decadron intraoperatively. The patient was able to be transferred to recovery room in stable condition. MD ALEXANDRA Medina/MAGGIE /[id number]
== END | disposition home or self-care (01) ==
LOC: OR 11:32
PROVIDERS: ATTEND Otolaryngology Otolaryngology/Facial Plastic Surgery
DX: M95.0 Acquired deformity of nose (principal); J32.3 Chronic sphenoidal sinusitis; J34.89 Other specified disorders of nose and nasal sinuses; I34.1 Nonrheumatic mitral (valve) prolapse; Z88.2 Allergy status to sulfonamides
CPT/HCPCS: 30465; 31259; 88304; 93005; J0171; J1100; J1885; J2250; J2405; J2704; J2765; J3010; J3301; J3490